=== PATIENT | female | born 1975 | race Caucasian/White ===

== ENCOUNTER 2022-12-24 17:53 | Emergency (ER) | payer BC ==
[2022-12-24 18:17] VITALS: BP 128/74; PULSE 80; RESP 18; TEMP 98.3; BMI 28.0
[2022-12-24] MEDS ORDERED: METHOCARBAMOL 500 MG TABLET PO ONE (21:12)
[2022-12-24] MEDS ORDERED: LIDOCAINE 5% TOPICAL PATCH TP ONE (21:12)
[2022-12-24] MEDS ORDERED: KETOROLAC TROMETHAMINE 30 MG/1 ML VIAL IM ONE (21:12)
[2022-12-24] MEDS ORDERED: LIDOCAINE 5% TOPICAL PATCH ONE (21:18)
[2022-12-24] MEDS ORDERED: KETOROLAC TROMETHAMINE 30 MG/1 ML VIAL ONE (21:18)
[2022-12-24] MEDS ORDERED: METHOCARBAMOL 500 MG TABLET ONE (21:18)
== END 2022-12-24 22:18 | disposition home or self-care (01) ==
LOC: JERFT 17:53 → JER 17:53 → JERFT 22:18
PROC: 3E0233Z Introduction of Anti-inflammatory into Muscle, Percutaneous Approach (ICD-10-PCS; principal; 2022-12-24)
DX: S39.012A Strain of muscle, fascia and tendon of lower back, initial encounter (principal); X50.0XXA Overexertion from strenuous movement or load, initial encounter
CPT/HCPCS: 99284-25